=== PATIENT | male | born 1970 | race African-American/Black ===

== ENCOUNTER 2016-10-27 03:26 | Emergency (ER) | payer SELFPAY ==
[~2016-10-27] VITALS: Ht 167.6 cm; Wt 85.2 kg
[~2016-10-27 03:26] MED LIST: LISI1TAB3 PO; LISI1TAB7 PO
[2016-10-27 03:28] VITALS: BP 145/93
== END 2016-10-27 04:18 | disposition home or self-care (01) ==
LOC: ED 04:12
DX: K02.9 Dental caries, unspecified (principal); I10 Essential (primary) hypertension
CPT/HCPCS: 99283

== ENCOUNTER 2017-07-02 03:34 | Emergency (ER) | payer OTHER ==
[~2017-07-02] VITALS: Ht 167.6 cm; Wt 86.1 kg
[2017-07-02] MEDS ORDERED: ACETAMINOPHEN 500 MG TABLET ONE (04:53)
[2017-07-02] MEDS ORDERED: KETOROLAC 30 MG/1 ML ONE (04:53)
[2017-07-02] MEDS ORDERED: DIPHENHYDRAMINE 50 MG/ML, 1ML ONE (04:53)
[2017-07-02] MEDS ORDERED: METOCLOPRAMIDE 5 MG/ML, 2ML ONE (04:53)
[2017-07-02] MEDS ORDERED: SODIUM CHLORIDE 0.9% 1,000ML IVBOLUS ONE (05:00)
[2017-07-02] MEDS ORDERED: METOCLOPRAMIDE 5 MG/ML, 2ML IVPush ONE (05:00)
[2017-07-02] MEDS ORDERED: SODIUM CHLORIDE FLUSH 10ML SYR IVF ONE (05:00)
[2017-07-02] MEDS ORDERED: KETOROLAC 30 MG/1 ML IVPush ONE (05:00)
[2017-07-02] MEDS ORDERED: DIPHENHYDRAMINE 50 MG/ML, 1ML IVPush ONE (05:00)
[2017-07-02] MEDS ORDERED: ACETAMINOPHEN 325 MG TABLET PO ONE (05:00)
[2017-07-02 06:16] VITALS: BP 153/90
== END 2017-07-02 06:50 | disposition home or self-care (01) ==
LOC: ED 06:05
DX: G44.52 New daily persistent headache (NDPH) (principal); I10 Essential (primary) hypertension; I25.2 Old myocardial infarction
CPT/HCPCS: 96361; 96374; 96375; 99285; J1200; J1885; J2765; J7030

== ENCOUNTER 2017-08-15 15:15 | Emergency (ER) | payer OTHER ==
[~2017-08-15] VITALS: Ht 167.6 cm; Wt 83.5 kg
[2017-08-15 15:17] VITALS: BP 168/100
[2017-08-15] MEDS ORDERED: METHOCARBAMOL 750 MG TABLET PO ONE ×2 (16:00→17:00)
[2017-08-15] MEDS ORDERED: KETOROLAC 30 MG/1 ML IM ONE (16:00)
[2017-08-15] MEDS ORDERED: KETOROLAC 30 MG/1 ML ONE (16:06)
[2017-08-15] MEDS ORDERED: METHOCARBAMOL 750 MG TABLET ONE (16:06)
== END 2017-08-15 17:14 | disposition home or self-care (01) ==
LOC: ED 17:08
DX: G24.3 Spasmodic torticollis (principal); I10 Essential (primary) hypertension; M54.12 Radiculopathy, cervical region; I25.2 Old myocardial infarction
CPT/HCPCS: 72125; 96372; 99284; J1885

== ENCOUNTER 2018-05-17 07:39 | Emergency (ER) | payer OTHER ==
[~2018-05-17] VITALS: Ht 167.6 cm; Wt 94.2 kg
[2018-05-17 07:45] VITALS: BP 181/125
[2018-05-17] MEDS ORDERED: DIAZEPAM 5 MG TABLET PO ONE (08:00)
[2018-05-17] MEDS ORDERED: KETOROLAC 30 MG/1 ML IM ONE (08:00)
[2018-05-17] MEDS ORDERED: KETOROLAC 30 MG/1 ML ONE (08:16)
[2018-05-17] MEDS ORDERED: LISINOPRIL 20 MG TABLET ONE (08:16)
[2018-05-17] MEDS ORDERED: DIAZEPAM 5 MG TABLET ONE (08:17)
[2018-05-17] MEDS ORDERED: HYDROCHLOROTHIAZIDE 25 MG TABLET PO ONE (08:30)
[2018-05-17] MEDS ORDERED: LISINOPRIL 20 MG TABLET PO ONE (08:30)
[2018-05-17 09:26] LABS: MICROSCOPIC AUTO
[2018-05-17 09:31] LABS: CULTURE INDICATED? YES
== END 2018-05-17 10:22 | disposition home or self-care (01) ==
LOC: ED 08:48
DX: M19.90 Unspecified osteoarthritis, unspecified site (principal); M54.5 Low back pain; N39.0 Urinary tract infection, site not specified; I10 Essential (primary) hypertension; I25.2 Old myocardial infarction; Z87.891 Personal history of nicotine dependence
CPT/HCPCS: 72110; 81001; 87086; 93005; 96372; 99285; J1885

== ENCOUNTER 2018-09-12 14:05 | Emergency (ER) | payer BC, OTHER ==
[~2018-09-12] VITALS: Ht 167.6 cm; Wt 91.7 kg
[2018-09-12 14:12] VITALS: BP 154/84
--- NOTE | 2018-09-12 14:35 | NUR ---
PT TO ROOM FROM LOBBY AT THIS TIME.
--- NOTE | 2018-09-12 14:37 | NUR ---
PT AMBULATORY WITH STEADY GAIT TO ROOM.
[2018-09-12] MEDS ORDERED: KETOROLAC 30 MG/1 ML IM ONE (15:00)
--- NOTE | 2018-09-12 15:00 | NUR ---
PT BACK FROM BATHROOM. THIS RN IN TO ASSESS PATIENT. PT BEING TAKEN TO IMAGING.
[2018-09-12] MEDS ORDERED: KETOROLAC 30 MG/1 ML ONE (15:05)
--- NOTE | 2018-09-12 15:12 | NUR ---
PT BACK FROM IMAGING.
[2018-09-12 15:17] LABS: MICROSCOPIC NOT IND
--- NOTE | 2018-09-12 15:33 | NUR ---
PT STATES "MY LOWER BACK HURTS. IT'S BEEN FOR A FEW DAYS." NO C/O CP, SOB, TRAUMA, N/V/D. NO C/O DYSURIA.
[2018-09-12 15:39] LABS: CULTURE INDICATED? NO
--- NOTE | 2018-09-12 16:11 | NUR ---
Patient/Caregiver given discharge instructions and they have confirmed that they understand the instructions. Patient ambulatory with steady gait. PT LEFT WITH ALL PERSONAL BELONGINGS. PT STATES "I CAN'T EVEN FEEL MY BACK AFTER THAT SHOT."
== END 2018-09-12 16:13 | disposition home or self-care (01) ==
LOC: ED 15:22
DX: M54.5 Low back pain (principal); M51.36 Other intervertebral disc degeneration, lumbar region; I25.2 Old myocardial infarction; Z87.891 Personal history of nicotine dependence
CPT/HCPCS: 72110; 81003; 96372; 99284; J1885

== ENCOUNTER 2018-11-19 01:24 | Emergency (ER) | payer SELFPAY ==
[~2018-11-19] VITALS: Ht 167.6 cm; Wt 86.6 kg
[2018-11-19 02:22] VITALS: BP 149/88
[2018-11-19] MEDS ORDERED: KETOROLAC 30 MG/1 ML ONE (02:39)
[2018-11-19] MEDS ORDERED: KETOROLAC 30 MG/1 ML IM ONE (03:00)
== END 2018-11-19 02:24 | disposition home or self-care (01) ==
LOC: ED 02:05
DX: K04.7 Periapical abscess without sinus (principal); I10 Essential (primary) hypertension; I25.2 Old myocardial infarction
CPT/HCPCS: 41800; 96372; 99283; J1885; 10060